=== PATIENT | female | born 1970 | race Caucasian/White ===

== ENCOUNTER 2016-10-22 17:58 | Emergency (ER) | payer OTHER ==
[~2016-10-22] VITALS: Ht 165.1 cm; Wt 83.9 kg
[~2016-10-22 17:58] MED LIST: AMITRIPTYLINE H25 MG PO; AMITRIPTYLINE H50 MG PO; ATIVAN1 MG PO; BACTRIM DS TAB1 EACH PO; CEPHALEXIN500 MG PO; CLONAZEPAM1 MG PO; FIORICET 50-301 EACH PO; IBUPROFEN600 MG PO; LEXAPRO10 MG PO; LEXAPRO20 MG; LEXAPRO20 MG PO; LORAZEPAM1 MG PO; MECLIZINE HCL25 MG PO; NAPROXEN375 MG PO; NORCO 5-325 TA1 EACH PO; VITAMIN E1000 UNI1 PO
[2016-10-22] MEDS ORDERED: TRAMADOL HCL50 MG PO (22:25)
== END 2016-10-22 22:40 | disposition home or self-care (01) ==
LOC: ED 17:58
DX: M79.605 Pain in left leg (principal); M79.604 Pain in right leg; F43.10 Post-traumatic stress disorder, unspecified; F17.200 Nicotine dependence, unspecified, uncomplicated; Z98.51 Tubal ligation status; Z88.5 Allergy status to narcotic agent; Z79.899 Other long term (current) drug therapy
CPT/HCPCS: 80053; 82607; 82746; 83735; 85025; 96372; 99283; J1885

== ENCOUNTER 2017-02-16 08:44 | Emergency (ER) | payer OTHER ==
[~2017-02-16] VITALS: Ht 165.1 cm; Wt 83.9 kg
[~2017-02-16 08:44] MED LIST changes: +TRAMADOL HCL50 MG PO
[2017-02-16] MEDS ORDERED: ADVIL MIGRAINE200 MG PO (08:56)
== END 2017-02-16 09:52 | disposition home or self-care (01) ==
LOC: ED 08:44
DX: G43.909 Migraine, unspecified, not intractable, without status migrainosus (principal); H53.149 Visual discomfort, unspecified; F17.200 Nicotine dependence, unspecified, uncomplicated; Z98.51 Tubal ligation status; Z79.899 Other long term (current) drug therapy; Z88.5 Allergy status to narcotic agent
CPT/HCPCS: 96374; 96375; 99282; J1200; J1885; J2765

== ENCOUNTER 2017-04-07 17:41 | Emergency (ER) | payer OTHER ==
[~2017-04-07] VITALS: Ht 165.1 cm; Wt 77.6 kg
[~2017-04-07 17:41] MED LIST changes: +ADVIL MIGRAINE200 MG PO
[2017-04-07] MEDS ORDERED: METOPROLOL SUCC25 MG PO ×2 (20:30→20:31)
--- NOTE | 2017-04-09 22:39 | EKG ---
[facility] [address] [facility] [place], [place] [address] Signed Normal sinus rhythm Normal ECG When compared with ECG of 19-JUN-2016 16:34, No significant change was found Confirmed by PIYUSH OLVERA MD ([id number]) on 04/09/2017 10:39:44 PM Electronically Signed By: PIYUSH OLVERA MD 04/09/17 2239 PATIENT NAME: EITAN ARMENDARIZ Electrocardiogram DATE OF : 74 PHYSICIAN: PIYUSH OLVERA MD REPORT #: [id number] REPORT IS CONFIDENTIAL AND NOT TO BE RELEASED WITHOUT AUTHORIZATION
== END 2017-04-07 21:03 | disposition left against medical advice (07) ==
LOC: ED 17:41
DX: I20.9 Angina pectoris, unspecified (principal); F41.9 Anxiety disorder, unspecified; G43.909 Migraine, unspecified, not intractable, without status migrainosus; F17.200 Nicotine dependence, unspecified, uncomplicated; Z98.51 Tubal ligation status; Z98.890 Other specified postprocedural states; Z88.5 Allergy status to narcotic agent
CPT/HCPCS: 71045; 80053; 83735; 84484; 85025; 85379; 85610; 93005; 93010; 96374; 96375; 99284; J1885; J2060

== ENCOUNTER 2017-04-28 11:00 | Emergency (ER) | payer OTHER ==
[~2017-04-28] VITALS: Ht 165.1 cm; Wt 77.1 kg
[~2017-04-28 11:00] MED LIST changes: +METOPROLOL SUCC25 MG PO
[2017-04-28] MEDS ORDERED: KETOROLAC TROME10 MG PO (11:29)
[2017-04-28] MEDS ORDERED: BACLOFEN10 MG PO (11:29)
== END 2017-04-28 11:43 | disposition home or self-care (01) ==
LOC: ED 11:00
DX: M99.01 Segmental and somatic dysfunction of cervical region (principal); M62.838 Other muscle spasm; F17.200 Nicotine dependence, unspecified, uncomplicated; Z98.51 Tubal ligation status; Z98.890 Other specified postprocedural states; Z88.5 Allergy status to narcotic agent
CPT/HCPCS: 99283

== ENCOUNTER 2017-04-28 18:51 | Emergency (ER) | payer OTHER ==
[~2017-04-28] VITALS: Ht 165.1 cm; Wt 77.1 kg
[~2017-04-28 18:51] MED LIST changes: +BACLOFEN10 MG PO; +KETOROLAC TROME10 MG PO
== END 2017-04-28 23:42 | disposition home or self-care (01) ==
LOC: ED 18:51
DX: M62.838 Other muscle spasm (principal); F17.200 Nicotine dependence, unspecified, uncomplicated; Z98.51 Tubal ligation status; Z98.890 Other specified postprocedural states; Z88.5 Allergy status to narcotic agent
CPT/HCPCS: 72125; 96372; 99284; J1885

== ENCOUNTER 2017-04-30 14:38 | Emergency (ER) | payer OTHER ==
[~2017-04-30] VITALS: Ht 165.1 cm; Wt 77.1 kg
== END 2017-04-30 15:08 | disposition home or self-care (01) ==
LOC: ED 14:38
DX: M54.2 Cervicalgia (principal)

== ENCOUNTER 2017-08-09 15:42 | Emergency (ER) | payer OTHER ==
[~2017-08-09] VITALS: Ht 165.1 cm; Wt 77.1 kg
--- NOTE | 2017-08-10 08:04 | EKG ---
[facility] [address] [facility] [place], [place] [address] Signed Normal sinus rhythm Normal ECG When compared with ECG of 07-APR-2017 17:45, No significant change was found Confirmed by JOSE L BUSH MD ([id number]) on 08/10/2017 8:04:01 AM Electronically Signed By: JOSE L BUSH MD 08/10/17 0804 PATIENT NAME: EITAN ARMENDARIZ Electrocardiogram DATE OF : 74 PHYSICIAN: JOSE L BUSH MD REPORT #: [id number] REPORT IS CONFIDENTIAL AND NOT TO BE RELEASED WITHOUT AUTHORIZATION
== END 2017-08-09 19:32 | disposition home or self-care (01) ==
LOC: ED 15:42
DX: R07.89 Other chest pain (principal); M79.602 Pain in left arm; F17.200 Nicotine dependence, unspecified, uncomplicated
CPT/HCPCS: 71046; 80053; 84484; 85025; 93005; 93010; 96374; 99284; J1885

== ENCOUNTER 2017-09-30 18:28 | Emergency (ER) | payer OTHER ==
[~2017-09-30] VITALS: Ht 165.1 cm; Wt 77.1 kg
== END 2017-09-30 20:35 | disposition home or self-care (01) ==
LOC: ED 18:28
DX: J06.9 Acute upper respiratory infection, unspecified (principal); F17.200 Nicotine dependence, unspecified, uncomplicated; Z88.5 Allergy status to narcotic agent
CPT/HCPCS: 87880; 99283

== ENCOUNTER 2017-10-05 18:08 | Emergency (ER) | payer OTHER ==
[~2017-10-05] VITALS: Ht 165.1 cm; Wt 77.1 kg
--- NOTE | 2017-10-06 08:22 | EKG ---
[facility] [address] [facility] [place], [place] [address] Signed Normal sinus rhythm Normal ECG When compared with ECG of 09-AUG-2017 15:48, No significant change was found Confirmed by JOSE L BUSH MD ([id number]) on 10/06/2017 8:22:12 AM Electronically Signed By: JOSE L BUSH MD 10/06/17 0822 PATIENT NAME: EITAN ARMENDARIZ Electrocardiogram DATE OF : 74 PHYSICIAN: JOSE L BUSH MD REPORT #: [id number] REPORT IS CONFIDENTIAL AND NOT TO BE RELEASED WITHOUT AUTHORIZATION
== END 2017-10-05 19:15 | disposition home or self-care (01) ==
LOC: ED 18:08
DX: R07.9 Chest pain, unspecified (principal); F41.9 Anxiety disorder, unspecified; F17.200 Nicotine dependence, unspecified, uncomplicated; Z88.5 Allergy status to narcotic agent
CPT/HCPCS: 93005; 93010; 99283

== ENCOUNTER 2017-11-17 13:20 | Emergency (ER) | payer OTHER ==
[~2017-11-17] VITALS: Ht 165.1 cm; Wt 77.1 kg
--- OUTSIDE RECORDS SUMMARY | ~2017-11-17 | XMS | Clinical Summary ---
Demographics + + + | Address | [address] | | | [place] [address] | + + + | Home Phone [...] + + + | Author | [employer] | + + + | Organization | [facility] [employer] | + + + | Address | Unknown | + + + | Phone | Unavailable | + + + Support + + +---------+ + | Name | Relationship | Address | Phone | + + +---------+ + | Patricio Neff | ECON | Unknown | | + + +---------+ + Care Team Providers + +------+ + | Care Wrist Closer Name | Role | Phone | + [...]
--- OUTSIDE RECORDS SUMMARY | ~2017-11-17 | XMS | Clinical Summary ---
Demographics + + + | Address | [address] | | | [place] [address] | + + + | Home Phone | | + + + | Preferred Language | Unknown | + + + | Marital Status | Single | + + + | Mormonism Affiliation | Unknown | + + + | Race | Unknown | + + + | Ethnic Group | Unknown | + + + Author + + + | Author | [employer] | + + + | Organization | [facility] [employer] | + + + | Address | Unknown | + + + | Phone | Unavailable | + + + Support + + +---------+ + | Name | Relationship | Address | Phone | + + +---------+ + | Patricio Neff | ECON | Unknown | | + + +---------+ + Care Team Providers + +------+ + | Care Chef Saucier Name | Role | Phone | + [...]
--- NOTE | 2017-11-17 18:49 | EKG ---
[facility] [address] [facility] [place], [place] [address] Signed Normal sinus rhythm Normal ECG When compared with ECG of 05-OCT-2017 18:21, No significant change was found Confirmed by PIYUSH OLVERA MD ([id number]) on 11/17/2017 6:48:48 PM Electronically Signed By: PIYUSH OLVERA MD 11/17/17 1849 PATIENT NAME: EITAN ARMENDARIZ Electrocardiogram DATE OF : 74 PHYSICIAN: PIYUSH OLVERA MD REPORT #: [id number] REPORT IS CONFIDENTIAL AND NOT TO BE RELEASED WITHOUT AUTHORIZATION
== END 2017-11-17 14:36 | disposition home or self-care (01) ==
LOC: ED 13:20
DX: R07.9 Chest pain, unspecified (principal); F43.10 Post-traumatic stress disorder, unspecified; G43.909 Migraine, unspecified, not intractable, without status migrainosus; Z88.5 Allergy status to narcotic agent
CPT/HCPCS: 71045; 80053; 84484; 85025; 93005; 93010; 99285

== ENCOUNTER 2017-11-20 20:11 | Emergency (ER) | payer OTHER ==
[~2017-11-20] VITALS: Ht 165.1 cm; Wt 77.1 kg
--- OUTSIDE RECORDS SUMMARY | ~2017-11-20 | XMS | Clinical Summary ---
Demographics + + + | Address | [address] | | | [place] [address] | + + + | Home Phone | | + + + | Preferred Language | Unknown | + + + | Marital Status | Single | + + + | Hinduism Affiliation | Unknown | + + + | Race | Unknown | + + + | Ethnic Group | Unknown | + + + Author + + + | Author | [employer] | + + + | Organization | [facility] [employer] | + + + | Address | Unknown | + + + | Phone | Unavailable | + + + Support + + +---------+ + | Name | Relationship | Address | Phone | + + +---------+ + | Patricio Neff | ECON | Unknown | | + + +---------+ + Care Team Providers + +------+ + | Care Heavy Machinery Assembler Name | Role | Phone | + +------+ + | Jac Coronadoareadrián DUVAL | PP | | + +------+ + Allergies Not on File Current Medications Not on file Active Problems Not on file Social History + +-------+ +--------+------+ | Tobacco Use | Types | Packs/Day | Years | Date | | | | | Used | | + +-------+ +--------+------+ | Never Assessed | | | | | + +-------+ +--------+------+ + + + | Sex Assigned at | Date Recorded | | | | + + + | Not on file | | + + + Plan of Treatment Not on file Results Not on filefrom Last 3 Months"
--- OUTSIDE RECORDS SUMMARY | ~2017-11-20 | XMS | Clinical Summary ---
Demographics + + + | Address | [address] | | | [place] [address] | + + + | Home Phone | | + + + | Preferred Language | Unknown | + + + | Marital Status | Single | + + + | Synagogue Affiliation | Unknown | + + + | Race | Unknown | + + + | Ethnic Group | Unknown | + + + Author + + + | Author | [employer] | + + + | Organization | [facility] [employer] [facility] | + + + | Address | Unknown | + + + | Phone | Unavailable | + + + Support + + +---------+ + | Name | Relationship | Address | Phone | + + +---------+ + | Patricio Neff | ECON | Unknown | | + + +---------+ + Care Team Providers + +------+ + | Care Front End Application Developer Name | Role | Phone | + [...]
[2017-11-20] MEDS ORDERED: NAPROXEN500 MG PO (22:00)
--- NOTE | 2017-11-21 11:36 | EKG ---
[facility] [address] [facility] [place] [address] Signed Normal sinus rhythm with sinus arrhythmia Possible Left atrial enlargement Borderline ECG When compared with ECG of 17-NOV-2017 13:24, No significant change was found Confirmed by PIYUSH OLVERA MD ([id number]) on 11/21/2017 11:35:28 AM Electronically Signed By: PIYUSH OLVERA MD 11/21/17 1136 PATIENT NAME: EITAN ARMENDARIZ Electrocardiogram DATE OF : 74 PHYSICIAN: PIYUSH OLVERA MD REPORT #: [id number] REPORT IS CONFIDENTIAL AND NOT TO BE RELEASED WITHOUT AUTHORIZATION
== END 2017-11-20 22:24 | disposition home or self-care (01) ==
LOC: ED 20:11
DX: R07.9 Chest pain, unspecified (principal); F43.10 Post-traumatic stress disorder, unspecified; G43.909 Migraine, unspecified, not intractable, without status migrainosus; F17.200 Nicotine dependence, unspecified, uncomplicated; Z88.5 Allergy status to narcotic agent
CPT/HCPCS: 71045; 80053; 84484; 85025; 93005; 93010; 96374; 99285; J1885

== ENCOUNTER 2018-06-25 17:56 | Emergency (ER) | payer OTHER ==
[~2018-06-25] VITALS: Ht 165.1 cm; Wt 77.1 kg
--- OUTSIDE RECORDS SUMMARY | ~2018-06-25 | XMS | Clinical Summary ---
Demographics + + + | Address | [address] | | | [place] [address] | + + + | Home Phone | | + + + | Preferred Language | Unknown | + + + | Marital Status | Single | + + + | Islam Affiliation | Unknown | + + + | Race | Unknown | + + + | Ethnic Group | Unknown | + + + Author + + + | Author | [employer] | + + + | Organization | [facility] [employer] | + + + | Address | Unknown | + + + | Phone | Unavailable | + + + Support + + +---------+ + | Name | Relationship | Address | Phone | + + +---------+ + | Patricio Neff | ECON | Unknown | | + + +---------+ + Care Team Providers + +------+ + | Care Sales Contract Administrator Name | Role | Phone | + [...]
--- OUTSIDE RECORDS SUMMARY | ~2018-06-25 | XMS | Clinical Summary ---
Demographics + + + | Address | [address] | | | [place] [address] | + + + | Home Phone | | + + + | Preferred Language | Unknown | + + + | Marital Status | Single | + + + | Mandaen Affiliation | Unknown | + + + | Race | Unknown | + + + | Ethnic Group | Unknown | + + + Author + + + | Author | [employer] | + + + | Organization | [facility] [employer] | + + + | Address | Unknown | + + + | Phone | Unavailable | + + + Support + + +---------+ + | Name | Relationship | Address | Phone | + + +---------+ + | Patricio Neff | ECON | Unknown | | + + +---------+ + Care Team Providers + +------+ + | Care Anesthesiology Fellow Name | Role | Phone | + [...]
[~2018-06-25 17:56] MED LIST changes: +CYCLOBENZAPRINE5 MG PO; +NAPROXEN500 MG PO
--- OUTSIDE RECORDS SUMMARY | 2018-06-25 17:58 | XMS ---
PreManage Notification: EITAN ARMENDARIZ Security Account Solutions Analyst Events No recent Security Events currently on file CRITERIA MET - Group Notification - [facility] - Has Care Guidelines CARE PROVIDERS EUSEBIO AUSTIN [facility] 11/17/2017-Current PHONE: [phone] RAO MILNER Primary Care Current PHONE: Unknown Kaleb has no Care Guidelines for this patient. Care History Medical/Surgical 11/18/2017 [facility] - PATIENT HAS NOT SEEN HER PCP SINCE 11/05/2015 DR AUSTIN OFFICE. - PATIENT HAS STATED TO THE PCP OFFICE IN THE PAST THAT SHE PREFERS TO UTILIZE THE ED FOR HER HEALTH CONCERNS. - CHW CALLED PATIENT AND LEFT PATIENT A VOICEMAIL 11/18/17. - PATIENT NEEDS A PCP FOR FOLLOW UP CARE. - PATIENT DOES NOT HAVE STATE INSURANCE OF 07/03/17. - PLEASE REFER PATIENT TO PRIMARY CARE PHYSICIAN. 10/07/2017 [facility] - Patient does not answer phone calls and or respond to letters sent. - When patient does answer her phone she will hang up and not any help with finding a PCP. - Please refer patient to [facility] and or other provider walk in clinic. Care Recommendation: This patient has had 5 or more Emergency Department visits in the last 12 months.\T\nbsp; Patient requires education on the scope and purpose of the ED as an acute care provider not a Primary Care Provider and should not be utilized for chronic conditions.\T\nbsp; If patient returns to ED please contact Community Health WorkerRosy at [phone]. These are guidelines and the provider should exercise clinical judgment when providing care. E.D. VISIT COUNT (12 MO.) [address] [facility] NOTE: Visits indicate total known visits. ED/UCC VISIT TRACKING (12 MO.) 06/25/2018 17:57 [facility] [place] TYPE: Emergency COMPLAINT: - RT FOOT PAIN 03/31/2018 18:49 [facility] [place] TYPE: Emergency DIAGNOSES: - NECK AND HEAD NUMBNESS,INSOMNIA - Other skin changes - Sleep disorder, unspecified 03/29/2018 06:23 [facility] [place] TYPE: Emergency COMPLAINT: - POSS INSOMNIA DIAGNOSES: - Other buttermaker continuous churn (current) drug therapy - Nicotine dependence, unspecified, uncomplicated - Post-traumatic stress disorder, unspecified - Allergy status to narcotic agent status - Insomnia, unspecified - Migraine, unspecified, not intractable, without status migrainosus 01/17/2018 15:14 [facility] [place] TYPE: Emergency COMPLAINT: - NUMB HEAD DIAGNOSES: - Paresthesia of skin - Migraine, unspecified, not intractable, without status migrainosus - Anesthesia of skin - Post-traumatic stress disorder, unspecified - Nicotine dependence, unspecified, uncomplicated - Allergy status to narcotic agent status - Other chcf (current) drug therapy 11/20/2017 20:12 [facility] [place] TYPE: Emergency COMPLAINT: - CHEST PAIN DIAGNOSES: - Migraine, unspecified, not intractable, without status migrainosus - Nicotine dependence, unspecified, uncomplicated - Chest pain, unspecified - Allergy status to narcotic agent status - Post-traumatic stress disorder, unspecified 11/17/2017 13:21 [facility] [place] TYPE: Emergency COMPLAINT: - CHEST PAIN/TROUBLE BREATHING DIAGNOSES: - Allergy status to narcotic agent status - Precordial pain - Migraine, unspecified, not intractable, without status migrainosus - Chest pain, unspecified - Chest pain, unspecified - Post-traumatic stress disorder, unspecified 10/05/2017 18:[address] [facility] [place] TYPE: Emergency COMPLAINT: - CHEST PAIN/ARM NUMBNESS DIAGNOSES: - Nicotine dependence, unspecified, uncomplicated - Chest pain, unspecified - Allergy status to narcotic agent status - Anxiety disorder, unspecified 09/30/2017 18:29 [facility] [place] TYPE: Emergency COMPLAINT: - SORE THROAT,DIFFICULTY TO SWALLOW DIAGNOSES: - Nicotine dependence, unspecified, uncomplicated - Acute pharyngitis, unspecified - Acute upper respiratory infection, unspecified - Allergy status to narcotic agent status 08/09/2017 15:42 [facility] [place] TYPE: Emergency COMPLAINT: - CHEST PAIN/L ARM PAIN DIAGNOSES: - Other chest pain - Chest pain, unspecified - Nicotine dependence, unspecified, uncomplicated - Pain in left arm INPATIENT VISIT TRACKING (12 MO.) No inpatient visits to display in this time frame [email or web address]
[2018-06-25] MEDS ORDERED: INDOMETHACIN50 MG PO (18:36)
== END 2018-06-25 18:41 | disposition home or self-care (01) ==
LOC: ED 17:56
DX: M10.9 Gout, unspecified (principal); F43.10 Post-traumatic stress disorder, unspecified; G62.9 Polyneuropathy, unspecified; F17.200 Nicotine dependence, unspecified, uncomplicated; Z88.5 Allergy status to narcotic agent
CPT/HCPCS: 99283

== ENCOUNTER 2018-07-17 13:15 | Emergency (ER) | payer OTHER ==
[~2018-07-17] VITALS: Ht 165.1 cm; Wt 77.1 kg
--- OUTSIDE RECORDS SUMMARY | ~2018-07-17 | XMS | Clinical Summary ---
Demographics + + + | Address | [address] | | | [place] [address] | + + + | Home Phone | | + + + | Preferred Language | Unknown | + + + | Marital Status | Single | + + + | Hoahaoism Affiliation | Unknown | + + + | Race | Unknown | + + + | Ethnic Group | Unknown | + + + Author + + + | Author | [employer] | + + + | Organization | [facility] [employer] [facility] | + + + | Address | Unknown | + + + | Phone | Unavailable | + + + Support + + +---------+ + | Name | Relationship | Address | Phone | + + +---------+ + | Patricio Neff | ECON | Unknown | | + + +---------+ + Care Team Providers + +------+ + | Care Assessor Name | Role | Phone | + [...]
--- OUTSIDE RECORDS SUMMARY | ~2018-07-17 | XMS | Clinical Summary ---
Demographics + + + | Address | [address] | | | [place] [address] | + + + | Home Phone | | + + + | Preferred Language | Unknown | + + + | Marital Status | Single | + + + | Presybeterian Affiliation | Unknown | + + + | Race | Unknown | + + + | Ethnic Group | Unknown | + + + Author + + + | Author | [employer] | + + + | Organization | [facility] [employer] | + + + | Address | Unknown | + + + | Phone | Unavailable | + + + Support + + +---------+ + | Name | Relationship | Address | Phone | + + +---------+ + | Patricio Neff | ECON | Unknown | | + + +---------+ + Care Team Providers + +------+ + | Care Automotive Wholesale Parts Advisor Name | Role | Phone | + [...]
[~2018-07-17 13:15] MED LIST changes: +INDOMETHACIN50 MG PO
--- OUTSIDE RECORDS SUMMARY | 2018-07-17 13:18 | XMS ---
PreManage Notification: EITAN ARMENDARIZ Security Manager Diabetes Events No recent Security Events currently on file CRITERIA MET - Group Notification - [facility] - Has Care Guidelines - [facility] - 2 Visits in 30 Days CARE PROVIDERS EUSEBIO AUSTIN Family [facility] 11/17/2017-Current PHONE: [phone] KAVITA ONEILL Physician Finish Specialist Current PHONE: [phone] RAO MILNER Primary Care Current PHONE: Unknown Kaleb has no Care Guidelines for this patient. Care History Medical/Surgical 06/27/2018 [facility] - PATIENT NO SHOWED TO APT TO ESTABLISH CARE WITH DR CHAVEZ ON 04/26/18. PATIENT HAS NO SHOWED TO SEVERAL APTS. - CHW IS UNABLE TO CONTACT PATIENT. - PLEASE CALL CHW AT [phone] IF PATIENT IS SEEN IN THE ED. IF CHW IS AVAILABE WILL MEET PATIENT IN THE ED. - PLEASE REFER PATIENT TO THE WALK IN CLINIC FOR NON EMERGENT MEDICAL NEEDS. 11/18/2017 [facility] - PATIENT HAS NOT SEEN HER PCP [...] REFER PATIENT TO PRIMARY CARE PHYSICIAN. 10/07/2017 [facility] - Patient does not answer phone calls [...] ED please contact Community Health WorkerRosy at [phone]. These are guidelines and the provider should exercise clinical judgment when providing care. E.D. VISIT COUNT (12 MO.) [address] TOTAL 10 NOTE: Visits indicate total known visits. ED/UCC VISIT TRACKING (12 MO.) 07/17/2018 13:16 [facility] [place] TYPE: Emergency COMPLAINT: - DIZZINESS, EXTREMITY PAINS NON INJURY 06/25/2018 17:57 [facility] [place] TYPE: Emergency COMPLAINT: - RT FOOT PAIN DIAGNOSES: - Post-traumatic stress disorder, unspecified - Nicotine dependence, unspecified, uncomplicated - Polyneuropathy, unspecified - Allergy status to narcotic agent status - Gout, unspecified - Pain in right foot 03/31/2018 18:49 [facility] [place] TYPE: Emergency DIAGNOSES: - NECK AND HEAD NUMBNESS,INSOMNIA - Other skin changes - Sleep disorder, unspecified 03/29/2018 06:23 [facility] [place] TYPE: Emergency COMPLAINT: - POSS INSOMNIA DIAGNOSES: - Other termite technician (current) drug therapy - Nicotine dependence, unspecified, uncomplicated - Post-traumatic stress disorder, unspecified - Allergy status to narcotic agent status - Insomnia, unspecified - Migraine, unspecified, not intractable, without status migrainosus 01/17/2018 15:14 [facility] [place] TYPE: Emergency COMPLAINT: - NUMB HEAD DIAGNOSES: - Paresthesia of skin - Migraine, unspecified, not intractable, without status migrainosus - Anesthesia of skin - Post-traumatic stress disorder, unspecified - Nicotine dependence, unspecified, uncomplicated - Allergy status to narcotic agent status - Other assisted (current) drug therapy 11/20/2017 20:12 [facility] [place] TYPE: Emergency COMPLAINT: - CHEST PAIN DIAGNOSES: - Migraine, unspecified, not intractable, without status migrainosus - Nicotine dependence, unspecified, uncomplicated - Chest pain, unspecified - Allergy status to narcotic agent status - Post-traumatic stress disorder, unspecified 11/17/2017 13:21 [facility] [place] TYPE: Emergency COMPLAINT: - CHEST PAIN/TROUBLE BREATHING DIAGNOSES: - Allergy status to narcotic agent status - Precordial pain - Migraine, unspecified, not intractable, without status migrainosus - Chest pain, unspecified - Chest pain, unspecified - Post-traumatic stress disorder, unspecified 10/05/2017 18:08 [facility] [place] TYPE: Emergency COMPLAINT: - CHEST PAIN/ARM [...] status to narcotic agent status 08/09/2017 15:[address] [facility] [place] TYPE: Emergency COMPLAINT: - CHEST PAIN/L ARM PAIN DIAGNOSES: - Other chest pain - Chest pain, unspecified - Nicotine dependence, unspecified, uncomplicated - Pain in left arm INPATIENT VISIT TRACKING (12 MO.) No inpatient visits to display in this time frame [email or web address]
[2018-07-17] MEDS ORDERED: VITAMIN D250000 UNIT PO (13:27)
--- NOTE | 2018-07-18 06:46 | EKG ---
[facility] [address] [facility] [place], [place] [address] Signed Normal sinus rhythm Normal ECG When compared with ECG of 20-NOV-2017 20:17, No significant change was found Confirmed by JOSE L BUSH MD ([id number]) on 07/18/2018 6:46:20 AM Electronically Signed By: JOSE L BUSH MD 07/18/18 0646 PATIENT NAME: EITAN ARMENDARIZ Electrocardiogram DATE OF : 74 PHYSICIAN: JOSE L BUSH MD REPORT #: [id number] REPORT IS CONFIDENTIAL AND NOT TO BE RELEASED WITHOUT AUTHORIZATION
== END 2018-07-17 15:15 | disposition home or self-care (01) ==
LOC: ED 13:15
DX: G43.909 Migraine, unspecified, not intractable, without status migrainosus (principal); R07.9 Chest pain, unspecified; F43.10 Post-traumatic stress disorder, unspecified; F17.200 Nicotine dependence, unspecified, uncomplicated; Z88.5 Allergy status to narcotic agent; Z79.899 Other long term (current) drug therapy
CPT/HCPCS: 80053; 84484; 85025; 93005; 93010; 96361; 96374; 96375; 99284-25; J0780; J1200; J7030

== ENCOUNTER 2018-11-27 17:55 | Emergency (ER) | payer OTHER ==
[~2018-11-27] VITALS: Ht 165.1 cm; Wt 77.1 kg
[~2018-11-27 17:55] MED LIST changes: +VITAMIN D250000 UNIT PO
--- OUTSIDE RECORDS SUMMARY | 2018-11-27 17:58 | XMS ---
PreManage Notification: EITAN ARMENDARIZ Security Ict Support Engineer Events No recent Security Events currently on file CRITERIA MET - Group Notification - [facility] CARE PROVIDERS EUSEBIO AUSTIN [facility] 11/17/2017-Current PHONE: [phone] KAVITA ONEILL Current PHONE: [phone] RAO MILNER Primary Care Current PHONE: Unknown LAMONT RICHARDSON Primary Care Kathy FLEMING PHONE: Unknown Kaleb has no Care Guidelines for this patient. Care History Medical/Surgical 06/27/2018 [facility] - PATIENT NO SHOWED TO APT TO ESTABLISH CARE WITH DR CHAVEZ ON 04/26/18. PATIENT HAS NO SHOWED TO SEVERAL APTS. - CHW IS UNABLE TO CONTACT PATIENT. - PLEASE CALL CHW AT [phone] IF PATIENT IS SEEN IN THE ED. IF CHW IS AVAILABE WILL MEET PATIENT IN THE ED. - PLEASE REFER PATIENT TO THE WALK IN CLINIC FOR NON EMERGENT MEDICAL NEEDS. 11/18/2017 [facility] - PATIENT HAS NOT SEEN HER [...] REFER PATIENT TO PRIMARY CARE PHYSICIAN. 10/07/2017 [facility] - Patient does not answer phone [...] ED please contact Community Health WorkerRosy at [phone]. These are guidelines and the provider should exercise clinical judgment when providing care. E.D. VISIT COUNT (12 MO.) 1 [facility] 5 [facility] TOTAL 6 NOTE: Visits indicate total known visits. ED/UCC VISIT TRACKING (12 MO.) 11/27/2018 17:56 [facility] [place] TYPE: Emergency COMPLAINT: - LEFT ARM PAIN, NUMBNESS 07/17/2018 13:[address] [facility] [place] TYPE: Emergency COMPLAINT: - DIZZINESS, EXTREMITY PAINS NON INJURY DIAGNOSES: - Migraine, unspecified, not intractable, without status migrainosus - Allergy status to narcotic agent status - Dizziness and giddiness - Other detention (current) drug therapy - Post-traumatic stress disorder, unspecified - Chest pain, unspecified - Nicotine dependence, unspecified, uncomplicated 06/25/2018 17:57 [facility] [place] TYPE: Emergency COMPLAINT: - RT FOOT PAIN DIAGNOSES: - Post-traumatic stress disorder, unspecified - Nicotine dependence, unspecified, uncomplicated - Polyneuropathy, unspecified - Allergy status to narcotic agent status - Gout, unspecified - Pain in right foot 03/31/2018 18:49 [facility] [place] TYPE: Emergency DIAGNOSES: - NECK AND HEAD NUMBNESS,INSOMNIA - Other skin changes - Sleep disorder, unspecified 03/29/2018 06:23 [facility] [place] TYPE: Emergency COMPLAINT: - POSS INSOMNIA DIAGNOSES: - Other detention (current) drug therapy - Nicotine dependence, unspecified, uncomplicated - Post-traumatic stress disorder, unspecified - Allergy status to narcotic agent status - Insomnia, unspecified - Migraine, unspecified, not intractable, without status migrainosus 01/17/2018 15:[address] [facility] [place] TYPE: Emergency COMPLAINT: - NUMB HEAD DIAGNOSES: - Paresthesia of skin - Migraine, unspecified, not intractable, without status migrainosus - Anesthesia of skin - Post-traumatic stress disorder, unspecified - Nicotine dependence, unspecified, uncomplicated - Allergy status to narcotic agent status - Other terminal operations supervisor (current) drug therapy INPATIENT VISIT TRACKING (12 MO.) No inpatient visits to display in this time frame [email or web address]
[2018-11-27] MEDS ORDERED: DICLOFENAC SODI75 MG PO (19:37)
== END 2018-11-27 19:45 | disposition home or self-care (01) ==
LOC: ED 17:55
DX: M77.12 Lateral epicondylitis, left elbow (principal); F17.200 Nicotine dependence, unspecified, uncomplicated; Z88.5 Allergy status to narcotic agent; Z79.899 Other long term (current) drug therapy
CPT/HCPCS: 99283

== ENCOUNTER 2019-01-11 12:31 | Emergency (ER) | payer OTHER ==
[~2019-01-11] VITALS: Ht 165.1 cm; Wt 77.1 kg
--- OUTSIDE RECORDS SUMMARY | ~2019-01-11 | XMS | Clinical Summary ---
Demographics + + + | Address | [address] | | | [place] [address] | + + + | Home Phone | | + + + | Preferred Language | Unknown | + + + | Marital Status | Single | + + + | Denominational Affiliation | Unknown | + + + | Race | Unknown | + + + | Ethnic Group | Unknown | + + + Author + + + | Author | [facility] (Historical as of | | | 11-19-18) | + + + | Organization | [facility] (Historical as of | | | 11-19-18) | + + + | Address | Unknown | + + + | Phone | Unavailable | + + + Support + + +---------+ + | Name | Relationship | Address | Phone | + + +---------+ + | Patricio Neff | ECON | Unknown | | + + +---------+ + Care Team Providers + +------+ + | Care Central Supply Nurse Name | Role | Phone | + +------+ + | Alfred Coronado | PP | | + +------+ + [...]
--- OUTSIDE RECORDS SUMMARY | ~2019-01-11 | XMS | Clinical Summary ---
Demographics + + + | Address | [address] | | | [place] [address] | + + + | Home Phone | | + + + | Preferred Language | Unknown | + + + | Marital Status | Single | + + + | Nondenominational Affiliation | Unknown | + + + | Race | Unknown | + + + | Ethnic Group | Unknown | + + + Author + + + | Author | [facility] | | | and [place] | + + + | Organization | [facility] | | | and [place] | + + + | Address | Unknown | + + + | Phone | Unavailable | + + + Support + + +---------+ + | Name | Relationship | Address | Phone | + + +---------+ + | Patricio Neff | ECON | Unknown | | + + +---------+ + Care Team Providers + +------+ + | Care Fluid Dynamicist Name | Role | Phone | + +------+ + | Alfred Coronado PA-C | PCP | | + +------+ + Allergies Not on File Medications Not on file Active Problems Not [...] on file | | + + + + + + + | Job Start Date | Occupation | Industry | + + + + | Not on file | Not on file | Not on file | + + + + + + + + | Travel History | Travel Start | Travel End | + + + + + + | No recent travel history available. | + + Last Filed Vital Signs Not on file Plan of Treatment + + + + + | Health Maintenance | Due Date | Last Done | Comments | + + + + + | Vaccine: | | | | | Dtap/Tdap/Td (1 - | 1 | | | | Tdap) | | | | + + + + + | Cervical Cancer | | | | | Screening (Pap) | 2 | | | + + + + + | Breast Cancer | | | | | Screening | 7 | | | + + + + + | Vaccine: Influenza | | | | | (#1) | 9 | | | + + + + + Results Not on filefrom Last 3 Months"
--- OUTSIDE RECORDS SUMMARY | ~2019-01-11 | XMS | Clinical Summary ---
Demographics + + + | Address | [address] | | | [place] [address] | + + + | Home Phone | | + + + | Preferred Language | Unknown | + + + | Marital Status | Single | + + + | Orthodoxy Affiliation | Unknown | + + + | Race | Unknown | + + + | Ethnic Group | Unknown | + + + Author + + + | Author | [facility] (Historical as of | | | 11-19-18) | + + + | Organization | [facility] (Historical as of | | | 11-19-18) [...] Team Providers + +------+ + | Care Director Of Integrated Marketing Name | Role | Phone | + [...]
--- OUTSIDE RECORDS SUMMARY | ~2019-01-11 | XMS | Clinical Summary ---
Demographics + + + | Address | [address] | | | [place] [address] | + + + | Home Phone | | + + + | Preferred Language | Unknown | + + + | Marital Status | Single | + + + | Gnosticist Affiliation | Unknown | + + + | Race | Unknown | + + + | Ethnic Group | Unknown | + + + Author + + + | Author | [facility] | | | and [place] | + + + | Organization | [facility] | | | and [place] [...] Team Providers + +------+ + | Care Building Wrecker Name | Role | Phone | + [...]
[~2019-01-11 12:31] MED LIST changes: +DICLOFENAC SODI75 MG PO
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
[2019-01-11] MEDS ORDERED: CYCLOBENZAPRINE10 MG PO (13:12)
== END 2019-01-11 13:33 | disposition home or self-care (01) ==
LOC: ED 12:31
DX: S39.012A Strain of muscle, fascia and tendon of lower back, initial encounter (principal); F17.200 Nicotine dependence, unspecified, uncomplicated; Z88.5 Allergy status to narcotic agent; V43.52XA Car driver injured in collision with other type car in traffic accident, initial encounter
CPT/HCPCS: 99283